=== PATIENT | male | born 1960 | race Caucasian/White ===

== ENCOUNTER 2019-10-04 20:06 | Emergency (ER) | payer MEDICAID ==
[2019-10-04] MEDS ORDERED: methylPREDNISolone SUCCINATE 125 MG/2 ML VIAL IVP STA (20:31)
[2019-10-04] MEDS ORDERED: TRANEXAMIC ACID 1,000 MG in SODIUM CHLORIDE 0.9% 100ML 100 ML IV STA (20:32)
[2019-10-04 20:42] LABS: BASOPHILS # (AUTO) 0.1 10^3/uL (0.0-0.1); BASOPHILS % (AUTO) 0.8 %; EOSINOPHILS # (AUTO) 0.7 10^3/uL (0.0-0.7); EOSINOPHILS % (AUTO) 7.9 %; HGB - HEMOGLOBIN 11.1 g/dL (14.0-18.0); LYMPHOCYTES # (AUTO) 1.6 10^3/uL (1.5-3.5); LYMPHOCYTES % (AUTO) 18.6 %; MEAN CORPUSCULAR HEMOGLOBIN 25.6 pg (27.0-31.0); MEAN CORPUSCULAR HGB CONC 31.4 g/dL (32.0-36.0); MEAN CORPUSCULAR VOLUME 81.6 fL (80.0-94.0); MEAN PLATELET VOLUME 9.3 fL (7.4-11.4); MONOCYTES # (AUTO) 0.9 10^3/uL (0.0-1.0); MONOCYTES % (AUTO) 10.5 %; NEUTROPHILS # (AUTO) 5.2 10^3/uL (1.5-6.6); NEUTROPHILS % (AUTO) 61.8 %; PLT - PLATELET COUNT 343 10^3/uL (130-450); RED BLOOD COUNT 4.34 10^6/uL (4.70-6.10); RED CELL DISTRIBUTION WIDTH 18.6 % (12.0-15.0); WHITE BLOOD COUNT 8.4 x10^3/uL (4.8-10.8)
[2019-10-04 20:48] LABS: CALCIUM 8.9 mg/dL (8.5-10.3); CREATININE 1.1 mg/dL (0.6-1.2)
--- NOTE | 2019-10-04 20:53 | ED Physician Documentation ---
History of Present Illness - Stated complaint Stated Complaint: LIP SWELLING - Chief complaint Chief Complaint: Allergic Rx - History obtained from History obtained from: Patient, Family - History of Present Illness Timing: Today Pain level max: 0 Pain level now: 0 - Additonal information Additional information: Patient with upper lip swelling that started approximately 6 hours ago. Took Benadryl without relief. Nothing makes it better or worse. No changes to his medications. No new medications. No new foods. No tongue involvement. No airway involvement. Swallowing and breathing and speaking without difficulty. He is on lisinopril. Review of Systems Constitutional: denies: Fever, Chills Respiratory: denies: Dyspnea, Cough GI: denies: Vomiting, Diarrhea Skin: denies: Rash PD PAST MEDICAL HISTORY - Past Medical History Past Medical History: Yes Cardiovascular: Hypertension, High cholesterol - Past Surgical History Past Surgical History: Yes General: Appendectomy - Present Medications Home Medications: Ambulatory Orders Medication Instructions Recorded Confirmed amLODIPine [Norvasc] 5 mg PO DAILY 02/28/15 10/04/19 lisinopriL [Zestril] 5 mg PO DAILY 02/28/15 10/04/19 Atorvastatin [Lipitor] 10 mg PO QPM 10/04/19 10/04/19 - Allergies Allergies/Adverse Reactions: Allergies Allergy/AdvReac Type Severity Reaction Status Date / Time No Known Drug Allergies Allergy Verified 10/04/19 20:10 - Social History Does the pt smoke?: No Smoking Status: Never smoker Does the pt drink ETOH?: Yes Does the pt have substance abuse?: Yes Substance Use and Type: Marijuana - Immunizations Immunizations are current?: Yes - POLST Patient has POLST: No PD ED PE NORMAL - Vitals Vital signs reviewed: Yes - General General: Alert and oriented X 3, No acute distress - HEENT HEENT: Moist mucous membranes, Other (Upper lip swelling. No tongue swelling. Normal phonation. No trismus. No wheezing. No stridor.) - Neck Neck: Supple, no meningeal sign - Cardiac Cardiac: RRR - Respiratory Respiratory: No respiratory distress, Clear bilaterally - Abdomen Abdomen: Soft, Non tender, Non distended - Derm Derm: Warm and dry - Extremities Extremities: No edema, No calf tenderness / cord - Neuro Neuro: Alert and oriented X 3 - Psych Psych: Normal mood, Normal affect Results - Vitals Vitals: Vital Signs - 24 hr 10/04/19 10/04/19 10/04/19 20:10 20:56 21:44 Temperature 36.5 C Heart Rate 85 84 78 Respiratory 14 16 16 Rate Blood Pressure 141/75 H 146/94 H 167/87 H O2 Saturation 97 98 97 Oxygen O2 Source Room air - Labs Labs: Laboratory Tests 10/04/19 10/04/19 20:35 20:35 WBC 8.4 RBC 4.34 L Hgb 11.1 L Hct 35.4 L MCV 81.6 MCH 25.6 L MCHC 31.4 L RDW 18.6 H Plt Count 343 MPV 9.3 Neut # (Auto) 5.2 Lymph # (Auto) 1.6 [place] # (Auto) 0.9 Eos # (Auto) 0.7 Baso # (Auto) 0.1 Absolute Nucleated RBC 0.00 Nucleated RBC % 0.0 Sodium 131 L Potassium 4.5 Chloride 98 L Carbon Dioxide 22 Anion Gap 11.0 BUN 20 Creatinine 1.1 Estimated GFR (MDRD) 68 L Glucose 114 H Calcium 8.9 PD MEDICAL DECISION MAKING - ED course Complexity details: reviewed results, re-evaluated patient, considered differential, d/w patient, d/w family ED course: Patient with what appears to be LIZZIE inhibitor induced angioedema. Given IV steroids as well as TXA. Symptoms improved. We will have him hold the lisinopril and stay away from LIZZIE inhibitors. We will have him follow-up with his doctor for further care. No oropharyngeal edema. No stridor. Patient counseled regarding signs and symptoms for which I believe and urgent re- evaluation would be necessary. Patient with good understanding of and agreement to plan and is comfortable going home at this time This document was made in part using voice recognition software. While efforts are made to proofread this document, sound alike and grammatical errors may occur. 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 Follow-up with your doctor for further care. Return if you worsen.
[2019-10-04 21:45] VITALS: BP 167/87
== END 2019-10-04 22:00 | disposition home or self-care (01) ==
LOC: ED 20:06
DX: T78.3XXA Angioneurotic edema, initial encounter (principal); T46.4X5A Adverse effect of angiotensin-converting-enzyme inhibitors, initial encounter; I10 Essential (primary) hypertension
CPT/HCPCS: 36415; 80048; 85025; 96374; 96375; 99284

== ENCOUNTER 2020-06-30 08:43 | Outpatient (CLI) | payer MEDICAID ==
--- NOTE | 2020-06-30 14:07 | Ultrasound Report ---
PROCEDURE: Duplex Aorta Complete INDICATIONS: PVD TECHNIQUE: Color and pulse Doppler interrogation was performed of the aorta and iliac arterial systems, with theresa ge documentation. COMPARISON: None. FINDINGS: Aorta: 64-85 cm/sec, with triphasic flow. Abdominal aorta has normal caliber. Right lower extremity: Proximal common iliac artery: 177cm/sec, with triphasic flow. Distal common iliac artery: 169 cm/sec, with triphasic flow. Proximal external iliac artery: 135 cm/sec, with triphasic flow. Distal external iliac artery: 93 cm/sec, with phasic flow. Common femoral artery: 79 cm/sec, with right phasic flow. Sanchez-scale imaging description: Diffuse calcified atherosclerotic plaque. Left lower extremity: Proximal common iliac artery: 223 cm/sec, with triphasic flow. Distal common iliac artery: 236 cm/sec, with triphasic flow. Proximal external iliac artery: 139 cm/sec, with biphasic flow. Distal external iliac artery: 151 cm/sec, with triphasic flow. Common femoral artery: 95 cm/sec, with phasic flow. Sanchez-scale imaging description: Diffuse calcified atherosclerotic plaque. IMPRESSION: 1. Hemodynamically significant atherosclerotic stenosis involving the common iliac arteries bilateral ly. 2. No large vessel occlusion. 3. No abdominal aortic aneurysm. Reviewed by: Mirella Restrepo MD, PhD on 06/30/2020 2:05 PM PDT Approved by: Mirella Restrepo MD, PhD on 06/30/2020 2:05 PM PDT Station ID: [id number]
== END 2020-06-30 08:44 | disposition home or self-care (01) ==
LOC: DI 08:43
PROVIDERS: ATTEND Family Medicine
DX: I70.203 Unspecified atherosclerosis of native arteries of extremities, bilateral legs (principal)
CPT/HCPCS: 93978